=== PATIENT | male | born 1950 | race Caucasian/White ===

== ENCOUNTER → 2016-07-31 | Outpatient (CLI) | payer MEDICARE ==
[2016-06-29 10:09] VITALS: BP 160/77
[~2016-07-31] MED LIST: CANA100T PO; GABA-586 PO; GLYB2.5T2 PO; INSU100I13 SQ; LIRA0.6P SQ; LISI2.5T PO; METF500T4 PO; PIOG15TA21 PO
--- NOTE | 2016-08-01 09:20 | KCIC ---
PROCEDURE MR of the left knee HISTORY Medial left knee pain for about 3 weeks. TECHNIQUE Standard multiplanar sequences. Due to size, larger flex coil had to with less image detail. COMPARISON FINDINGS There is moderate motion degradation Degenerative tear of the medial meniscus. No evidence of a lateral meniscal tear. The anterior cruciate ligament is not visualized. There are no acute pivot-shift bone injuries. The posterior cruciate ligament is thick with some hyperintense signal compatible with degeneration or partial tear. No complete transverse rupture Medial collateral ligament is intact. Iliotibial band unremarkable. Fibular collateral ligament, biceps femoris tendon and popliteus tendon are intact. Extensor mechanism is intact. Small joint effusion. There are 2 osteochondral bodies in the posterior intercondylar notch, larger measuring 14 millimeter. Severe chondromalacia at the medial joint compartment. At least mild degenerative changes at the lateral compartment. At least moderate degenerative changes at patellofemoral joint compartment No evidence of bone lesion or acute fracture. There is some nonspecific intermuscular fluid tracking at the posterior knee. Generalized subcutaneous edema. Partially visualized fatty signal within the medial gastrocnemius, likely a small lipoma partially seen. IMPRESSION 1. Moderate motion degradation. 2. Medial meniscal tear. 3. Nonvisualized anterior cruciate ligament. Although visualization could be compromised by the motion, a chronic rupture is suspected. 4. Abnormal posterior cruciate ligament likely due to chronic degeneration or less likely partial tearing 5. Severe primary osteoarthritis with 2 posterior loose bodies. Electronically signed by: Nicko Velez MD (Aug 01, 2016 09:18:55)
== END | disposition home or self-care (01) ==
LOC: KCIC MRI 15:11
PROVIDERS: ATTEND Family Medicine
DX: S83.242A Other tear of medial meniscus, current injury, left knee, initial encounter (principal); M17.12 Unilateral primary osteoarthritis, left knee
CPT/HCPCS: 73721

== ENCOUNTER → 2018-09-24 | Outpatient (CLI) | payer BC ==
[2016-06-29 10:09] VITALS: BP 160/77
[~2018-09-24] MED LIST changes: -GABA-586 PO; +GABA300C18 PO; +METF500T16 PO; -METF500T4 PO; -PIOG15TA21 PO; +PIOG15TA42 PO
--- NOTE | 2018-09-24 15:34 | RAD ---
Bilateral lower extremity arterial ultrasound History: Bilateral lower extremity wounds Findings: Multiple grayscale, color, and duplex spectral analysis sonographic images were acquired of the lower extremity arteries bilaterally. There are no previous similar exams. Exam may be limited due to bilateral lower extremity edema and patient body habitus. Velocities in cm/sec: RIGHT Common femoral artery 197 Profunda femoris artery 102 Proximal SFA 157 Mid SFA 137 Distal SFA 181 Popliteal artery 143 Anterior tibial artery not visualized Dorsalis pedis artery 44 Posterior tibial artery not visualized Peroneal artery 95 Monophasic flow is noted throughout the visualized right lower extremity arterial vasculature. LEFT: Common femoral artery 163 Profunda femoris artery 173 Proximal SFA 101 Mid SFA 119 Distal SFA 115 Popliteal artery 191 Anterior tibial artery not visualized Dorsalis pedis artery 77 Posterior tibial artery 88 Peroneal artery not visualized Biphasic flow is identified involving the left common femoral artery and profunda femoris. Monophasic flow is visualized is seen involving the visualized arterial vasculature of the left lower extremities. Lower extremity edema is noted bilaterally. Impression: 1. Anterior tibial artery bilaterally and the right posterior tibial artery as well as the left peroneal artery are not identified. Findings of concern for occlusion of these vessels. Monophasic flow bilaterally involving the lower extremities is identified. Correlate for possibility of more proximal stenosis. Consider CTA with runoff exam for more complete assessment if able. Electronically signed by: Dean Mckinley MD (09/24/2018 3:31 PM) [facility]
--- NOTE | 2018-09-24 16:17 | RAD ---
VENOUS REFLUX BILATERAL History: Bilateral lower extremity wounds Comparison: None. Findings: Multiple color, grayscale, spectral analysis waveform images of the lower extremity veins bilaterally are submitted for the purpose of evaluation for reflux. There is edema of the soft tissues. No reflex was demonstrated on the right although the right lesser saphenous vein could not be visualized. On the left, there was reflux of left calf personal banking representative vessel located 15 mm superiorly and 7 mm posteriorly, measuring 0.29 cm in caliber, time 1.029 seconds. No reflux was identified of the left lesser saphenous vein. Impression: 1. There was reflux of left calf personal banking representative vessel. 2. No reflux was identified on the right although the right lesser saphenous vein could not be visualized. Electronically signed by: Dionisio Vásquez MD (09/24/2018 4:14 PM) [facility]
== END | disposition home or self-care (01) ==
LOC: US 12:19
PROVIDERS: ATTEND Preventive Medicine Undersea and Hyperbaric Medicine
DX: I70.8 Atherosclerosis of other arteries (principal); L97.211 Non-pressure chronic ulcer of right calf limited to breakdown of skin; L97.221 Non-pressure chronic ulcer of left calf limited to breakdown of skin
CPT/HCPCS: 93925; 93970

== ENCOUNTER → 2019-12-03 | Outpatient (CLI) | payer BC ==
[2016-06-29 10:09] VITALS: BP 160/77
[~2019-12-03] MED LIST changes: +BIOT25006 PO; +CARI350T PO; +CYAN100031 PO; +EMPA10TA PO; +FERR-36 PO; +FURO-68 PO; +INUL2TAB4 PO; +IOHEXOL 180 MG/ML 10 ML VIAL. ONE; +LORA10TA3 PO; +LOVA40TA2 PO; +LUTE1CAP5 PO; +NAPR-677 PO; +OMEG-128 PO; +OXYC1TAB22 PO; +PIOG30TA41 PO; +POTA20TA4 PO; +TEST200V3 IM; +TRAM150C25 PO; +TRAZ150T49 PO; +TURM500C4 PO; +UBID100C26 PO; +VITA400C37 PO; +ZOLP5TAB5 PO; +methylPREDNISolone ACETATE 40 MG/ML VIAL. ONE; +methylPREDNISolone ACETATE 80 MG/ML VIAL. ONE
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
== END | disposition home or self-care (01) ==
LOC: PNCL 10:34
PROVIDERS: ATTEND Anesthesiology
DX: M54.2 Cervicalgia (principal); M54.5 Low back pain; M19.90 Unspecified osteoarthritis, unspecified site; I10 Essential (primary) hypertension; E11.9 Type 2 diabetes mellitus without complications; Z79.4 Long term (current) use of insulin; Z98.890 Other specified postprocedural states; Z79.899 Other long term (current) drug therapy; Z88.5 Allergy status to narcotic agent; Z88.2 Allergy status to sulfonamides
CPT/HCPCS: 62321; J1030; J1040; Q9965

== ENCOUNTER → 2019-12-23 | Outpatient (CLI) | payer BC ==
[2016-06-29 10:09] VITALS: BP 160/77
--- NOTE | 2019-12-23 12:34 | PDOC ---
Progress Note - Pain Clinic Date of Service: DOS: DATE: 12/23/19 TIME: 12:28 Diagnosis: Dx: Cervical radiculopathy with cervical degenerative disc disease History or Present Illness: HPI: 69-year-old male returns follow-up status post cervical epidural straight injection x1. Patient reports about 10% improvement for the first 2 weeks was much better over that time. But now 10% overall patient reports no new motor or sensory deficit still significant pain in the base the neck and right extremity rating the right arm and shoulder. Patient was also low back pain with pain rating to left lower extremity. Patient reports the pain in the neck and yuval ulders radiating constant severe tingling burning cramping stabbing aching sharp dull and shooting in alternation patient works as a 10 on scale of 10 is worse of the past week 8 on average and 3 displeasing is a 5 today. Patient reports no new motor or sensory deficits or other complaints at this time. Which awakens him from sleep at least once or twice a night sometimes every 4-5 hours however most nights he sleeps fairly well. Patient ports he was increasing mobility for the first 2 weeks after the injection but now is returning closer to baseline. Physical Exam: VS: Blood pressure 140/79 pulse 88 respirations 20 temperature 98.4 F weight is 3 5 5 pounds PE: PHYSICAL EXAMINATION: GENERAL: The patient is awake, alert, oriented, appropriate, very pleasant demeanor HEENT: Shows normocephalic, atraumatic. Extraocular movements are intact and symmetrical. Oral cavity: Mucous membranes moist and pink. Dentition is intact. NECK: Shows anterior throat supple without palpable lymphadenopathy noted. Swallow reflex symmetrical. CHEST: Shows normal on inspection. Breath sounds are clear bilaterally. HEART: Shows S1, S2 clear. No murmurs auscultated. ABDOMEN: Soft, nontender, nondistended. No palpable organomegaly is noted. No rebound or guarding demonstrated. BACK: Shows spine grossly in the midline. Normal-appearing cervical lordotic curvature. There is slightly increased thoracic kyphosis, some minor flattening of the lumbar lordotic curvature. Lumbar paraspinous muscles show symmetrical on inspection, on palpation shows some moderate tenderness diffusely throughout the upper, middle and lower distribution of the paraspinous muscles bilaterally and also into the lower thoracic paraspinous musculature, firm and tender, but without specific trigger points, without radiation of pain. The patient has good rotational motion of the lumbar spine, both laterally as well as extension and flexion without significant difficulty. No tenderness over the spinous processes, sacrum or sacroiliac regions. EXTREMITIES: upper extremities show deep tendon reflexes 1+ in the biceps and triceps tendons. Motor exam is 4 on a scale of 5 with right biceps and triceps flexion and 4/5 on the left. Peripheral pulses are 2+ radial. No peripheral edema is noted bilaterally. upper extremities are warm and dry to touch, equal in color and appearance. Lower extremities show bilateral significant edema below the knee with compressive bandages and wraps in place. SKIN: Shows warm and dry, good turgor. No edema. No sores, rashes or bruising throughout. Procedure: Procedure: Options were discussed with the patient, patient's old chart was reviewed his his current medication regimen updated current review of systems updated today as well. We will proceed with a second posterior cervical epidural surgery today with fluoroscopic guidance risks were again discussed including but not limited to bleeding infection possibility of epidural hematoma subsequent neurological compromise dural puncture headache spinal cord and or nerve damage side effects of steroid medication and poor results guarding pain control. Patient understands wishes to proceed. Procedure cervical epidural steroid injection at the C6-7 level, using local anesthetic under sterile prep and drape using C-arm fluoroscopic guidance under local anesthesia medications injected ; 120 mg Depo-Medrol + 5 mL normal saline and 2 mL contrast; condition at discharge is stable patient tolerated pro cedure well. and had no complications Medication Injected: Med Injected: See procedure note Condition at Discharge: Condition at Discharge: Condition discharge is stable patient on the procedure well and had no complications. YOUSUF GALINDO MD Dec 23, 2019 12:34
== END | disposition home or self-care (01) ==
LOC: PNCL 11:14
PROVIDERS: ATTEND Anesthesiology
DX: M50.123 Cervical disc disorder at C6-C7 level with radiculopathy (principal); I10 Essential (primary) hypertension; E11.9 Type 2 diabetes mellitus without complications; Z88.5 Allergy status to narcotic agent; Z88.2 Allergy status to sulfonamides; Z79.4 Long term (current) use of insulin; Z79.899 Other long term (current) drug therapy
CPT/HCPCS: 62321; J1030; J1040; Q9965

== ENCOUNTER → 2020-01-06 | Outpatient (CLI) | payer BC ==
[2016-06-29 10:09] VITALS: BP 160/77
--- NOTE | 2020-01-06 11:19 | PDOC ---
Progress Note - Pain Clinic Date of Service: DOS: DATE: 01/06/20 TIME: 11:13 Diagnosis: Dx: Cervical radiculopathy the cervical degenerative disc disease Lumbar radiculopathy with lumbar degenerative disc disease lumbar postlaminectomy syndrome History or Present Illness: HPI: 6-year-old male returns follow-up status post cervical epidural steroid action x2. Patient only about 20 to 30% improvement in the neck and shoulders patient reports his main complaint is low back and his left lower extremity. Patient report he still has pain in the base the neck and shoulders but after 2 injections would like to focus on his low back as we discussed this in the past. Patient which is low back is more painful is rated as a 10 on scale 10 is worse with the past week 7 on average 3 this least is a 7 today patient was aching sharp shooting tingling cramping burning in the left leg with radiating the left leg that can be severe with weightbearing walking standing or changing positions. Patient reports generalized better with sitting or laying down but does not awaken him from sleep at night as well. Patient reports no new motor or sensory deficits no new bowel bladder or other complaints. Physical Exam: VS: Blood pressure is 135/77 pulse 85 respirations 18 temperature 98.2 F height is 5 feet 9 inches weight 350 pounds PE: PHYSICAL EXAMINATION: GENERAL: The patient is awake, alert, oriented, appropriate, very pleasant demeanor HEENT: Shows normocephalic, atraumatic. Extraocular movements are intact and symmetrical. Oral cavity: Mucous membranes moist and pink. NECK: Shows anterior throat supple without palpable lymphadenopathy noted. Swallow reflex symmetrical. CHEST: Shows normal on inspection. Breath sounds are clear bilaterally. HEART: Shows S1, S2 clear. No murmurs auscultated. ABDOMEN: Soft, nontender, nondistended. No palpable organomegaly is noted. No rebound or guarding demonstrated. BACK: Shows spine grossly in the midline. Normal-appearing cervical lordotic curvature, paraspinous posterior shows moderately tender with inferior aspect of the cervical paraspinous muscles bilaterally diffusely without significant radiation. Patient shows good rotation motion cervical spine both laterally as well as extension and flexion without significant limitation. There is slightly increased thoracic kyphosis, some minor flattening of the lumbar lordotic curvature. Lumbar paraspinous muscles show symmetrical on inspection, with well-healed surgical scarring in the midline, on palpation shows some moderate tenderness diffusely throughout the upper, middle and lower distribution of the paraspinous muscles bilaterally and also into the lower thoracic paraspinous musculature, firm and tender, but without specific trigger points, without radiation of pain. The patient has good rotational motion of the lumbar spine, both laterally as well as extension and flexion without significant difficulty. No tenderness over the spinous processes, sacrum or sacroiliac regions. EXTREMITIES: Lower extremities show deep tendon reflexes 1+ in the patellar and tendo calcaneus tendons. Motor exam is 4 on a scale of 5 with right dorsiflexion, extension, quadriceps and hamstring flexion and 3-4/5 on the left. Peripheral pulses are 1 posterior tibial. Patient with approximate 2+ peripheral edema is noted bilaterally, with leg wrappings and Ankur bandage on the left lower extremity. Lower extremities are warm and dry to touch, equal in color and appearance. The patient is able to stand but needs help with both of his canes he uses 1 in each hand to stand from a seated position and is using a wheelchair to discharge today.. SKIN: Shows warm and dry, good turgor. No edema. No sores, rashes or bruising throughout. Procedure: Procedure: Options were discussed with patient. Patient will chart reviewed his his current medication regimen updated current review of systems updated today as well. We discussed that since he did fairly well after the last cervical epidural , and his main complaint is in his low back and left lower extremity pain, we will focus on the lumbar spine today. We will proceed with a lumbar epidural steroid injection with fluoroscopic guidance. Risks are discussed including but not limited to bleeding infection possibility of epidural hematoma subsequent neurological compromise dural puncture headache spinal cord and or nerve damage side effects of steroid medication and poor results regarding pain control. Patient understands wished to proceed. Patient return to clinic in roughly 2 weeks for follow-up was counseled as to return appointment activity level and side effects be aware. Medication Injected: Med Injected: Procedure is lumbar epidural steroid injection under local anesthetic using sterile prep and drape at the L5-S1 level using C-arm fluoroscopic guidance in both AP and lateral views medications injected is 120 mg Depo-Medrol + 10 mL preservative-free normal saline and 2 mL contrast- condition at discharge is stable patient tolerated procedure well had no complications. Condition at Discharge: Condition at Discharge: Condition at discharge stable patient tolerated procedure well had no complications. YOUSUF GALINDO MD Jan 06, 2020 11:19
== END | disposition home or self-care (01) ==
LOC: PNCL 10:29
PROVIDERS: ATTEND Anesthesiology
DX: M51.16 Intervertebral disc disorders with radiculopathy, lumbar region (principal); M96.1 Postlaminectomy syndrome, not elsewhere classified; M50.10 Cervical disc disorder with radiculopathy, unspecified cervical region; Z88.5 Allergy status to narcotic agent; Z88.2 Allergy status to sulfonamides; Z79.82 Long term (current) use of aspirin; Z79.899 Other long term (current) drug therapy
CPT/HCPCS: 62323; J1030; J1040; Q9965

== ENCOUNTER 2020-11-10 03:58 | Emergency (ER) | payer BC, MEDICARE ==
[~2020-11-10] VITALS: Ht 172.7 cm; Wt 159.0 kg
[~2020-11-10 03:58] MED LIST changes: -IOHEXOL 180 MG/ML 10 ML VIAL. ONE; -methylPREDNISolone ACETATE 40 MG/ML VIAL. ONE; -methylPREDNISolone ACETATE 80 MG/ML VIAL. ONE
[2020-11-10 04:16] VITALS: BP 150/84
--- NOTE | 2020-11-10 04:17 | PHYS DOC ---
General Adult EDM: Chief Complaint: LOWER EXT PAIN HPI: HPI: Patient is a 70 year old male who presented to ER due to left ankle pain. Patient said he was walking 2 days ago fell, twisted his left ankle. Patient said the pain has been getting worse since. Patient has been walking on it. Patient denies any knee pain, no leg pain. Patient denies any hip pain or pelvic pain. Review of Systems: Review of Systems: Constitutional: Denies fever or chills. [] Eyes: Denies change in visual acuity. [] HENT: Denies nasal congestion or sore throat. [] Respiratory: Denies cough or shortness of breath. [] Cardiovascular: Denies chest pain or edema. [] GI: Denies abdominal pain, nausea, vomiting, bloody stools or diarrhea. [] : Denies dysuria. [] Musculoskeletal: Positive for left ankle pain. Integument: Denies rash. [] Neurologic: Denies headache, focal weakness or sensory changes. [] Endocrine: Denies polyuria or polydipsia. [] Lymphatic: Denies swollen glands. [] Psychiatric: Denies depression or anxiety. [] Heart Score: C/O Chest Pain: N/A Risk Factors: Risk Factors: DM, Current or recent (<one month) smoker, HTN, HLP, family history of CAD, obesity. Risk Scores: Score 0 - 3: 2.5% MACE over next 6 weeks - Discharge Home Score 4 - 6: 20.3% MACE over next 6 weeks - Admit for Clinical Observation Score 7 - 10: 72.7% MACE over next 6 weeks - Early Invasive Strategies Allergies: Allergies: Allergies Coded Allergies Type Severity Reaction Last Updated Verified Sulfa (Sulfonamide Antibiotics) Allergy Unknown 04/12/15 Yes codeine Allergy Unknown 04/12/15 Yes Physical Exam: PE: Constitutional: Well developed, well nourished, no acute distress, non-toxic appearance. Morbidly obese HENT: Normocephalic, atraumatic, bilateral external ears normal, oropharynx moist, no oral exudates, nose normal. [] Eyes: PERRLA, EOMI, conjunctiva normal, no discharge. [] Neck: Normal range of motion, no tenderness, supple, no stridor. [] Back: No tenderness, no CVA tenderness. [] Extremities: Left ankle is swollen and tender to palpation, no obvious deformity. Neurologic: Alert and oriented X 3, normal motor function, normal sensory function, no focal deficits noted. [] Psychologic: Affect normal, judgement normal, mood normal. [] EKG: EKG: [] Radiology/Procedures: Radiology/Procedures: [][facility] [address] [place] [address] IMAGING REPORT Signed PATIENT: PALAK LEVINE ACCOUNT: [id number] : 1950 LOCATION: ER AGE: 70 SEX: M EXAM STATUS: PRE ER ORD. PHYSICIAN: DANNIE JACQUES DO REASON: left ankle pain, fell two days ago PROCEDURE: ANKLE LEFT 3V XR EXAM OF ANKLE_LEFT 3V DATE: 11/10/2020 4:11 AM INDICATION: left ankle pain, fell two days ago COMPARISON: None. FINDINGS: Bones: There is no evidence of acute fracture or dislocation. Posterior and plantar calcaneal enthesophytes. Joints: The ankle mortise is congruent. No widening of the distal tibiofibular syndesmosis. Miscellaneous: Atherosclerotic vascular calcifications. IMPRESSION: No acute fracture. Electronically signed by: Avelina Swartz MD (11/10/2020 4:42 AM) [facility] DICTATED and SIGNED BY: AVELINA SWARTZ MD DATE: 11/10/20 [id number] 0 Course & Med Decision Making: Course & Med Decision Making Pertinent Labs and Imaging studies reviewed. (See chart for details) [] Dragon Disclaimer: Dragon Disclaimer: This electronic medical record was generated, in whole or in part, using a voice recognition dictation system. Departure Departure Impression: Primary Impression: Left ankle sprain Disposition: HOME / SELF CARE / HOMELESS Condition: STABLE Referrals: Donna LOZA MD (PCP) Follow up with your doctor as needed Patient Instructions: Ankle Sprain, Acute, with Phase I Rehab-SportsMed Additional Instructions: Thank you for visiting our Emergency Department. We appreciate you trusting us with your care. If any additional problems come up don't hesitate to return to visit us. Please follow up with your primary care provider so they can plan additional care if needed and know about the problem that you had. If symptoms worsen come back to the Emergency Department. Any concerning symptoms that start such as chest pain, shortness of air, weakness or numbness on one side of the body, running high fevers or any other concerning symptoms return to the ER. DANNIE JACQUES DO Nov 10, 2020 04:17
--- NOTE | 2020-11-10 04:44 | RAD ---
XR EXAM OF ANKLE_LEFT 3V DATE: 11/10/2020 4:11 AM INDICATION: left ankle pain, fell two days ago COMPARISON: None. FINDINGS: Bones: There is no evidence of acute fracture or dislocation. Posterior and plantar calcaneal entheso phytes. Joints: The ankle mortise is congruent. No widening of the distal tibiofibular syndesmosis. Miscellaneous: Atherosclerotic vascular calcifications. IMPRESSION: No acute fracture. Electronically signed by: Dionisio Swartz MD (11/10/2020 4:42 AM) [facility]
[2020-11-10] MEDS ORDERED: oxyCODONE/APAP 5/325 1 TAB TABLET PO ONE (05:00)
== END 2020-11-10 05:35 | disposition home or self-care (01) ==
LOC: ER 03:58
DX: S93.402A Sprain of unspecified ligament of left ankle, initial encounter (principal); Z88.2 Allergy status to sulfonamides; Z88.5 Allergy status to narcotic agent; W18.39XA Other fall on same level, initial encounter; Y93.89 Activity, other specified; Y92.89 Other specified places as the place of occurrence of the external cause; Y99.8 Other external cause status
CPT/HCPCS: 73610; 99284

== ENCOUNTER → 2021-06-24 | Outpatient (CLI) | payer MEDICARE ==
[~2021-06-24] MED LIST changes: -LISI2.5T PO; +LISI2.5T12 PO; +POTA-121 PO; -POTA20TA4 PO
--- NOTE | 2021-06-24 16:58 | RAD ---
EXAM: Left foot, 3 views. HISTORY: Foreign body. COMPARISON: None. FINDINGS: 3 views of the left shoulder obtained. There is a punctate foreign body within the soft tis sues of the plantar lateral aspect of the distal great toe. There is dorsal foot soft tissue swelling . There is a moderate plantar spur. There is enthesopathy at Achilles tendon insertion. There is firs t metatarsal phalangeal joint spurring. IMPRESSION: 1. Punctate foreign body overlying the soft tissues of the distal lateral aspect of the right toe. 2. Dorsal forefoot soft tissue swelling. 3. First metatarsal phalangeal joint osteoarthritis, moderate plantar spur and enthesopathy at the Ac hilles insertion. Electronically signed by: Sofie Arshad MD (06/24/2021 4:55 PM) [id number]
== END ==
LOC: RAD 16:07
PROVIDERS: ATTEND Family Medicine
DX: S90.852S Superficial foreign body, left foot, sequela (principal); M19.072 Primary osteoarthritis, left ankle and foot; M77.8 Other enthesopathies, not elsewhere classified; M79.89 Other specified soft tissue disorders; X58.XXXD Exposure to other specified factors, subsequent encounter
CPT/HCPCS: 73630